=== PATIENT | female | born 1945 | race Caucasian/White ===

== ENCOUNTER → 2016-05-17 12:28 | Outpatient (CLI) | payer MEDICARE, OTHER | END | disposition home or self-care (01) | LOC: D.MRI 12:28 | DX: M54.5 Low back pain (principal); M25.551 Pain in right hip ==

== ENCOUNTER → 2016-07-04 20:09 | Outpatient (CLI) | payer MEDICARE, OTHER | END | disposition home or self-care (01) | LOC: D.LABREF 20:09 | DX: M16.11 Unilateral primary osteoarthritis, right hip (principal); Z11.8 Encounter for screening for other infectious and parasitic diseases ==

== ENCOUNTER 2016-08-14 05:34 | Day surgery (SDC) | payer MEDICARE, OTHER ==
[~2016-08-14] VITALS: Ht 160 cm; Wt 64.4 kg
--- NOTE | ~2016-08-14 | OP ---
PATIENT NAME: VALDO AGUILERA MEDICAL RECORD: [id number] :43 LOCATION:D.OPS ADMISSION DATE: SURGEON: TOMER GILBERT MD DATE OF OPERATION: 08/14/2016 PREOPERATIVE DIAGNOSES: 1. Malignant melanoma of the left anterior thigh. 2. Hypertension. POSTOPERATIVE DIAGNOSES: 1. Malignant melanoma of the left anterior thigh. 2. Hypertension. PROCEDURES: 1. Wide local excision of left anterior thigh melanoma. 2. Left inguinal sentinel lymph node biopsy. SURGEON: Tomer Gilbert MD. REPORT OF PROCEDURE: Preoperatively, the patient underwent lymphoscintigraphy. It showed uptake in the patient's left groin. Left anterior thigh and left groin were all prepped and draped in sterile fashion. Using a Neoprobe, I was able to localize the area overlying the sentinel lymph node. A longitudinal incision was made overlying this and electrocautery was used to dissect through the subcutaneous tissue down to the lymph node. This lymph node was enlarged, but had no change in color. This lymph node was excised and the lymphatics were clipped with small endoclip. The lymph node had a reading of 1300. This was sent off for permanent specimen. We inspected the remainder of the inguinal space and saw no evidence of any high reading lymphatic tissue. Any bleeding that was found was treated with electrocautery and then we irrigated out this wound. We then proceeded to radha out the area on the left anterior thigh just above the knee, 2-cm margins were made in all directions and a longitudinal ellipse were performed using electrocautery, came through the skin and subcutaneous tissue down to the fascia. This entire section was removed all the way down to the fascia and marked appropriately before it was sent off for permanent specimen. We undermined the tissue in all directions and reapproximated the subcutaneous tissue using interrupted 3-0 Vicryls. The skin was then closed with vertical mattress 2-0 nylons. There was good approximation of the tissue. The groin incision was reinspected and again, there was no sign of any bleeding. The subcutaneous tissues and fascia were reapproximated with interrupted 3-0 Vicryl and the skin was closed with running subcutaneous 5-0 Monocryl. A total of 20 mL of 0.25% Marcaine with epinephrine was infused into the surrounding tissues and the wound was dressed appropriately. The total width of the dissection area was 5 cm. COMPLICATIONS: None. CONDITION: Stable. ANESTHESIA: General endotracheal and local. BLOOD LOSS: Minimal. TRANSINT:[id number] Voice Confirmation ID: [id number] DOCUMENT ID: [id number] OPERATIVE REPORT [id number] VALDO AGUILERA CHRISTIAN MD CC: NITA ANTHONY M.D. and DAY KIRKLAND MD [id number] DICTATION DATE: 08/14/16 1357 DERRICK BOAT CAPTAIN: 08/14/16 2356 [facility] 08/14/[address] [address]
[~2016-08-14 05:34] MED LIST: BENADRYL25 MG PO; BIOTIN5 MG PO; BONIVA150 MG PO; COREG 3.1253.125 MG PO; CYCLOBENZAPRINE10 MG PO; FIBER-TABS625 MG PO; MELATONIN 3 MG1 TAB PO; OS-CAL 500+D TA1 TAB PO; PEPCID40 MG PO; PERCOCET 10/3251 TA1 PO; PERCOCET 5-3251 TAB PO; ZOLOFT100 MG PO
[2016-08-14 06:24] LABS: BASOPHILS 0.3 % (0-2); EOSINOPHILS 2.5 % (0-7); HEMATOCRIT 40.6 % (36.0-48.0); HEMOGLOBIN 13.5 g/dL (12-16); IMMATURE GRANULOCYTES 0.5 % (0-5); LYMPHOCYTES 22.8 % (15-50); MCH 30.3 pg (26.0-34.0); MCHC 33.3 g/dL (31.0-37.0); MCV 91.2 fL (80.0-100.0); MEAN PLATELET VOLUME 8.5 fL (7.4-10.4); NEUTROPHILS 64.9 % (40-80); PLATELET COUNT 293 10x3/uL (130-400); RBC 4.45 10x6/uL (4.00-5.40); RDW 12.9 % (11.5-14.5); WBC 7.3 10x3/uL (4.8-10.8)
[2016-08-14 06:28] LABS: ANION GAP 10.2 mmol/L (8-16); CALCIUM 9.2 mg/dL (8.5-10.1); CARBON DIOXIDE 29.8 mmol/L (21.0-32.0); CREATININE - SERUM 0.8 mg/dL (0.6-1.3)
[2016-08-14 06:29] LABS: APTT 28.3 SECONDS (22.8-39.4); INR 0.95 (0.85-1.17); PROTIME 12.5 SECONDS (11.6-15.0)
[2016-08-14] MEDS ORDERED: CIPRO500 MG (06:46)
[2016-08-14] MEDS ORDERED: NUCYNTA (06:48)
--- NOTE | 2016-08-14 07:05 | NUR ---
0705 PT STATES NO CHANGES IN HEALTH HISTORY ASSESSMENT SINCE INTERVIEWED ON 08/13/16. Tricia DHILLON R.N.
[2016-08-14 07:08] VITALS: BP 135/79; Ht 160 cm; Wt 64.4 kg
--- NOTE | 2016-08-14 07:37 | NUR ---
0858 TO MEDICAL IMAGING PER WHEELCHAIR. Tricia DHILLON R.N.
--- NOTE | 2016-08-14 13:18 | NUR ---
FOAM UNDER RIGHT KNEE DUE TO RIGHT HIP PAIN
[2016-08-14] MEDS ORDERED: HYDROCODONE-APA1 TAB PO (13:51)
== END 2016-08-14 15:35 | disposition home or self-care (01) ==
LOC: D.OPS 05:34 → D.PAN 07:30 → D.NM 07:30 → D.OPS 07:30
PROVIDERS: Anesthesiology; Surgery
DX: Z85.820 Personal history of malignant melanoma of skin (principal); I10 Essential (primary) hypertension

== ENCOUNTER 2016-08-23 09:00 | Inpatient (IN) | payer MEDICARE, OTHER ==
[~2016-08-23] VITALS: Ht 160 cm; Wt 62.8 kg
--- NOTE | ~2016-08-23 | OP ---
PATIENT NAME: VALDO AGUILERA MEDICAL RECORD: [id number] :43 LOCATION:D.MS [facility] ADMISSION DATE:08/27/16 SURGEON: MALLORY GARCIA MD DATE OF OPERATION: 08/27/2016 PREOPERATIVE DIAGNOSIS: Degenerative arthritis of the right hip. POSTOPERATIVE DIAGNOSIS: Degenerative arthritis of the right hip. PROCEDURE: Right total hip arthroplasty. ANESTHESIA: General. INTRAOPERATIVE COMPLICATIONS: None. SUMMARY OF PATHOLOGIC FINDINGS: The patient had extensive osteoarthritis of the right hip consistent with the preoperative radiographs. IMPLANTS USED: BrandMe crowdmarketing triathlon Accolade II system with a Tritanium cup size 3 stem, size 52 hemispherical cluster hole shell, 0-degree polyethylene insert, 36-mm alpha code D, Biolox delta ceramic V40 femoral head -2.5 mm. OPERATIVE SUMMARY IN DETAIL: After obtaining the appropriate preoperative orthopedic surgery consent as well as anesthetic consultation, evaluation and clearance, the patient was brought to the operating room and placed on the operating table in supine position. After general laryngeal mask was administered, the patient was placed in a left lateral decubitus position. All pressure points were well padded to include down leg peroneal pad as well as axillary roll. The patient was held firmly to the operating table using the vacuum pack suction system. Right lower extremity and hip were then prepped and draped in a routine sterile fashion. Curvilinear incision was made over the greater trochanter, taken down along the IT band which was split in line with fibers of the IT band to reveal gluteus medius and minimus attachment to the greater trochanter. These were reflected anteriorly and saved for later reapproximation. The hip capsule was split in a T-type fashion and saved also for later reapproximation. Hip was dislocated and femoral neck cut was made using the femoral neck cutting guide. The acetabulum was then visualized. A circumferential labrectomy was then followed by serial and sequential reaming along with removal of osteophytes. The Tritanium cup was then put into place with good capture. The polyethylene liner was also put into place with good capture. Attention was then turned to the proximal femur. Serial and sequential reaming and broaching were done to the proximal femur for a size 3 Accolade II TMZF stem. This was then put into place. Trials were undertaken with the appropriate head and it was felt that the -2.5 was the most appropriate for leg length. This was then reduced, taken through range of motion and found to be stable in all planes. Intraoperative radiographs were taken and showed good position and placement of all components. The wound was copiously irrigated at this multiple points. The hip capsule was reapproximated with #2 Ethibond. The gluteus medius and minimus were reapproximated back to the greater trochanter using #5 Ethibond in a transosseous fashion. IT band was likewise closed with #5 Ethibond followed by #1 Vicryl, 2-0 Vicryl and skin suha. Sterile dressings were applied. The patient was awakened, taken to recovery room in stable condition. All final needle and sponge counts were correct. OPERATIVE REPORT [id number] VALDO AGUILERA TRANSINT:[id number] Voice Confirmation ID: [id number] DOCUMENT ID: [id number] JOSE WILLIS, MALLORY MOYA CC: [id number] DICTATION DATE: 08/27/16 1136 SKI INSTRUCTOR: 08/27/16 1633 ADM IN [facility] [address] [place] [address]
[~2016-08-23 09:00] MED LIST changes: +CIPRO500 MG; +HYDROCODONE-APA1 TAB PO; +NUCYNTA
[2016-08-23 09:01] LABS: BASOPHILS 0.5 % (0-2); HEMATOCRIT 37.5 % (36.0-48.0); HEMOGLOBIN 12.4 g/dL (12-16); IMMATURE GRANULOCYTES 0.5 % (0-5); LYMPHOCYTES 17.7 % (15-50); MCH 30.6 pg (26.0-34.0); MCHC 33.1 g/dL (31.0-37.0); MCV 92.6 fL (80.0-100.0); MEAN PLATELET VOLUME 8.5 fL (7.4-10.4); MONOCYTES 11.1 % (2-11); NEUTROPHILS 68.2 % (40-80); PLATELET COUNT 319 10x3/uL (130-400); RBC 4.05 10x6/uL (4.00-5.40); RDW 12.5 % (11.5-14.5); WBC 6.4 10x3/uL (4.8-10.8)
[2016-08-23 09:02] LABS: APPEARANCE CLEAR (CLEAR); BACTERIA FEW /hpf (NONE SEEN); BILIRUBIN NEGATIVE (NEGATIVE); COLOR YELLOW (YELLOW); GLUCOSE NEGATIVE (NEGATIVE); KETONE NEGATIVE (NEGATIVE); LEUKOCYTE ESTERASE TRACE (NEGATIVE); MUCUS >1+ /lpf (NONE SEEN); NITRITE NEGATIVE (NEGATIVE); PROTEIN NEGATIVE (NEGATIVE); RED CELLS - URINE NONE SEEN /hpf (0-5); SPECIFIC GRAVITY 1.015 (1.005-1.020); UROBILINOGEN NORMAL (NORMAL)
[2016-08-23 09:03] LABS: HYALINE CAST 0-5 /lpf (NONE SEEN)
[2016-08-23 09:10] LABS: APTT 29.4 SECONDS (22.8-39.4); INR 0.99 (0.85-1.17); PROTIME 12.9 SECONDS (11.6-15.0)
[2016-08-23 09:15] LABS: ANION GAP 11.2 mmol/L (8-16); CALCIUM 8.9 mg/dL (8.5-10.1); CREATININE - SERUM 0.9 mg/dL (0.6-1.3); POTASSIUM - SERUM 4.2 mmol/L (3.5-5.1)
--- NOTE | 2016-08-23 12:18 | NUR ---
1200- ABNORMAL UA RESULT CALLED TO DR. GARCIA.
[2016-08-27] VITALS (11 sets, daily range): BP systolic 116–143; BP diastolic 67–93; Ht 160 cm; Wt 62.8 kg
--- NOTE | 2016-08-27 10:49 | NUR ---
RIGHT HIP,LEG WASHED WITH HIBICLENS AND ALCOHOL PRIOR TO CHLORPREP PER DN
--- NOTE | 2016-08-27 12:30 | NUR ---
RECIEVED PT FROM RECOVERY ROOM, REPORT GIVEN BY DON AVELAR. PT RESTING IN BED POST-OP VITALS STARTED AT THIS TIME. ASSESSMENT DONE PER FLOWSHEET. BED IN LOW POSITION AND CALL LIGHT WITHIN REACH. WILL CONTINUE TO MONITOR.
[2016-08-28] VITALS: BP 129/67
--- NOTE | 2016-08-28 02:22 | NUR ---
RESTING WITH EYES CLOSED, NO DISTRESS NOTED, FALL PRECAUTIONS IN PLACE, CL IN REACH
--- NOTE | 2016-08-28 02:47 | NUR ---
REC'D PATIENT LYING IN BED. ALERT AND ORIENTED X4. DENIED PAIN AT THIS TIME. DENIED FUTHER NEEDS AT THIS TIME. 2030 GOT ONTO THE BEDPAN AND SHE DID NOT DO ANYTHING. WAS REPORTED TO ME THAT SHE HAD NOT VOIDED SINCE 1300 08/27/16, PATIENT STATED "I HAVE NOT VOIDED SINCE 0900" I BLADDER SCANNED HER AND GOT 969ML, PATIENT STATED "IM HURTING IN MY STOMACH" I PUT IN THE ORDER TO IN AND OUT CATH HER PER DON SOLITARIO. DID THE IN AND OUT AND GOT 850ML. PATIENT STATED "I FEEL SO MUCH BETTER NOW". DID THE IN AND OUT AROUND 2230. AT 0245 PATIENT GOT ONTO THE BEDPAN AND WAS ABLE TO VOID ON HER OWN. WILL CONT TO MONITOR THROUGHOUT THE NIGHT. WILL ADMIN PM/AM MEDS PRESCRIBED. IS AT BEDSIDE. INSTRUCTED TO CALLL IF NEEDED ANYTHING. BED LOW, LOCKED, CALL LIGHT IN REACH, ALARM ON.
[2016-08-28 04:00] VITALS: BP 134/72
[2016-08-28 06:44] LABS: HEMATOCRIT 31.1 % (36.0-48.0); HEMOGLOBIN 10.4 g/dL (12-16); MCH 30.7 pg (26.0-34.0); MCHC 33.4 g/dL (31.0-37.0); MCV 91.7 fL (80.0-100.0); MEAN PLATELET VOLUME 8.6 fL (7.4-10.4); RBC 3.39 10x6/uL (4.00-5.40); RDW 12.7 % (11.5-14.5); WBC 9.5 10x3/uL (4.8-10.8)
--- NOTE | 2016-08-28 07:30 | NUR ---
RECIEVED PT DURING WALKING ROUNDS. PT RESTING IN BED WITH NO COMPLAINTS OF PAIN OR DISCOMFORT AT THIS TIME. ASSESSMENT DONE PER FLOWSHEET. BED IN LOW POSITION AND CALL LIGHT WITHIN REACH. WILL CONTINUE TO MONITOR.
[2016-08-28 08:12] VITALS: BP 125/62
--- NOTE | 2016-08-28 09:35 | NUR ---
PT UP TO CHAIR WITH PHYSICAL THERAPY AT THIS TIME, PT TOLERATED WELL. CALL LIGHT WITHIN REACH. WILL CONTINUE TO MONITOR.
[2016-08-28 12:27] VITALS: BP 133/63
--- NOTE | 2016-08-28 15:00 | NUR ---
called to room per spouse. pt cheeks are flushed. no complaints of pain or sob. temp 99.4. was using incentive spirometry when nurse walked into room. encouraged pt to continue using it every hour x several times hour. stated she would. call light in place
--- NOTE | 2016-08-28 15:21 | NUR ---
Patient Name: VALDO AGUILERA Admission Status: Urgent Accout number: [id number] Admission Date: 08-27-2016 : 1945 Admission Diagnosis: Attending: ROLA Current LOS: 1 Anticipated DC Date: 08-29-2016 Planned Disposition: Outpatient PT\OT Primary Insurance: MEDICARE A & B Discharge Planning Comments: CM SPOKE WITH PATIENT AND HER SPOUSE (PAIGE) REGARDING D/C NEEDS AND PLANS. PATIENT STATED HER SPOUSE WILL DRIVE HER HOME AT DISCHARGE. THERE ARE NO STEPS TO ENTER HOME AND 4 STEPS INSIDE WITH RAILS. PATIENT IS INDEPENDENT WITH HER CARE AND HAS A WALKER, CANE, AND BS COMMODE AT HOME. PATIENTS PCP IS DR. ANTHONY AND [facility] [address] IS HER PHARMACY. PATIENT WILL BE HAVING OP PT AT [place] AND HER APPOINTMENT IS SATURDAY AT 11:00AM. CM WILL CONTINUE TO FOLLOW PATIENT WITH D/C NEEDS AND PLANS. PCP DR. RAJ RING [address] [phone] PAIGE (SPOUSE) [phone] Dental Associate: Eunice Gould Is the patient Alert and Oriented? Yes 0 * How many steps to enter\exit or inside your home? 4 W/RAILS 0 * PCP DR. ANTHONY 0 * Pharmacy [facility] [address] 0 * Preadmission Environment Home with Family 0 * ADLs Independent 0 * Equipment Bedside Commode Cane Walker 0 * List name and contact numbers for known caregivers / representatives who currently or will assist patient after discharge: PAIGE AGUILERA (SPOUSE) [phone] * Community resources currently utilized None 0 * Additional services required to return to the preadmission environment? Yes 0 * Can the patient safely return to the preadmission environment? Yes 0 * Has this patient been hospitalized within the prior 30 days at any hospital? No 0 Grand Total: 0
[2016-08-28 16:26] VITALS: BP 139/71
[2016-08-28 20:00] VITALS: BP 125/68
--- NOTE | 2016-08-28 20:20 | NUR ---
ASSISTED PATIENT FROM THE BED TO THE BSC AND BACK TO BED. ADMINISTERED MEDS PER ORDERS. PATIENT DENIES OTHER NEEDS AT THIS TIME. BED IN THE LOWEST POSITION AND CALL LIGHT WITHIN REACH. ENCOURAGED THE PATIENT TO CALL IF SHE HAS FURTHER NEEDS.
[2016-08-29] VITALS: BP 125/67
[2016-08-29 04:00] VITALS: BP 125/71
[2016-08-29 06:36] LABS: HEMATOCRIT 30.9 % (36.0-48.0); HEMOGLOBIN 10.4 g/dL (12-16); MCH 30.7 pg (26.0-34.0); MCHC 33.7 g/dL (31.0-37.0); MCV 91.2 fL (80.0-100.0); MEAN PLATELET VOLUME 8.3 fL (7.4-10.4); RBC 3.39 10x6/uL (4.00-5.40); WBC 10.7 10x3/uL (4.8-10.8)
--- NOTE | 2016-08-29 07:25 | NUR ---
REPORT RECEIVED PER COMMERCIAL LOAN ANALYST NURSE. CALL LIGHT IN REACH.
[2016-08-29] MEDS ORDERED: ELIQUIS2.5 MG PO (07:38)
[2016-08-29 08:00] VITALS: BP 113/65
[2016-08-29] MEDS ORDERED: HYDROCODONE-APA1 TAB PO (08:59)
--- NOTE | 2016-08-29 09:19 | NUR ---
ASSESSMENT COMPLETED. AM MEDS ADMINISTERED. STATES PAIN OF 5 BUT REFUSES PAIN MED AT THIS TIME. CALL LIGHT IN REACH. WILL CONTINUE WITH PLAN OF CARE.
--- NOTE | 2016-08-29 09:20 | NUR ---
CM REASSESSMENT NOTE: PATIENT IS DISCHARGING HOME TODAY- (PAIGE) DRIVING. PATIENTS APPT. FOR OP PT IS SATURDAY AT 11:00 HERE AT [facility]. PATIENT HAD ALL EQUIPMENT NEEDED AT HOME.
--- NOTE | 2016-08-29 10:53 | NUR ---
HAS COMPLETED PHYSICAL THERAPY FOR THE DAY. 4X4s REMOVED BUT ANNA SARGENTG LEFT ON. IV TO LEFT AC DC'D WITH TIP INTACT.
--- NOTE | 2016-08-29 11:14 | NUR ---
PT AOX4 RESP EVEN AND NONLABORED PT DENIES NEEDS AT THIS TIME PT HERE FOR RIGHT HIP REPAIR FOR THIS VISIT
--- NOTE | 2016-08-29 11:28 | NUR ---
DC INSTRUCTIONS EXPLAINED TO PATIENT AND . BOTH VERBALIZED UNDERSTANDING. RXs FOR NORCO AND ELIQUIS HANDED TO . DC'D TO VEHICLE VIA WC WITH .
== END 2016-08-29 11:29 | disposition home or self-care (01) | DRG 470 ==
LOC: D.SDCHOLD 09:00 → D.MS 08-27 07:15 → D.SDCHOLD 08-27 08:45 → D.MS 08-27 11:41
PROVIDERS: ADMIT Orthopaedic Surgery
PROC: 0SR904Z Replacement of Right Hip Joint with Ceramic on Polyethylene Synthetic Substitute, Open Approach (ICD-10-PCS; principal; 2016-08-27 09:45)
DX: M16.11 Unilateral primary osteoarthritis, right hip (principal); D62 Acute posthemorrhagic anemia; M25.751 Osteophyte, right hip; I10 Essential (primary) hypertension

== ENCOUNTER → 2017-08-01 12:41 | Outpatient (CLI) | payer MEDICARE, OTHER ==
[2016-08-27 13:21] VITALS: BMI 24.5
[~2017-08-01 12:41] MED LIST changes: +ELIQUIS2.5 MG PO
== END | disposition home or self-care (01) ==
LOC: D.RAD 12:40
DX: C43.9 Malignant melanoma of skin, unspecified (principal)

== ENCOUNTER → 2017-10-23 08:00 | Outpatient (CLI) | payer MEDICARE, OTHER ==
[2016-08-27 13:21] VITALS: BMI 24.5
== END | disposition home or self-care (01) ==
LOC: D.MAMMO 08:00
DX: Z12.31 Encounter for screening mammogram for malignant neoplasm of breast (principal)

== ENCOUNTER 2018-03-26 15:58 | Inpatient (IN) | payer MEDICARE, BC ==
[~2018-03-26] VITALS: Ht 160 cm; Wt 63.5 kg
--- NOTE | ~2018-03-26 | HEMODYNAMI ---
PATIENT:VALDO AGUILERA MEDICAL RECORD: [id number] : 43 LOCATION:D.MS [facility] ADMISSION DATE: 03/26/18 Generatedon:03/27/201815:10 Patient name: VALDO AGUILERA Patient #: [id number] SSN: D OB: 1945 Date of study: 03/27/2018 Page: Of Hemodynamic Procedure Report Patient Data Patient Demographics Procedure consent was obtained First Name: VALDO Gender: Female Last Name: WILLY : 1945 Middle Initial: C Age: 72 year(s) Patient #: [id number] Race: Unknown Additional ID: [id number] Contact details Address: [address] [place] [address] State: [place] City: [place] Zip code: [address] Admission Admission Data Admission Date: 03/26/2018 Admission Time: 17:59 Room #: D.2207 Procedure Procedure Types Cath Procedure Peripheral Cath Diagnostic Procedure Manager Programming Peripheral Procedures IVC Filter Procedure Description Procedure Date Procedure Date: 03/27/2018 Procedure Start Time: 14:25 Procedure Staff Name Function John Edmonds RT Monitor Alfredito Cruz MD Performing Physician Sarah Lujan Scrub Krystal Hwang RN Nurse Procedure Data Cath Procedure Fluoroscopy Diagnostic fluoroscopy Total fluoroscopy Time: 9.3 time: 9.3 min min Diagnostic fluoroscopy Total fluoroscopy dose: 649 dose: 649 mGy mGy Contrast Material Contrast Material Type Amount (ml) Isovue 300 65 Diagnostic catheters Device Type Used For End Catheter Placement Merit F Pigtail VESSEL SIZING 5Fr 65CM catheter ([id number]) Procedure Medications Medication Administration Route Dosage Lidocaine 1% added to field 20 Heparin Flush Bag added to field 3 bags (1000units/500ml NS) Versed I.V. 1 mg Fentanyl I.V. 50 mcg Versed I.V. 1 mg Fentanyl I.V. 50 mcg Hemodynamics Rest Heart Rate: 97 (bpm) Snapshots Pre Cath Intra NCS Post Cath Vital Signs Time Heart Resp SPO2 etCO2 NIBP (mmHg) Rhythm Pain Sedation Rate (ipm) (%) (mmHg) Status Level (bpm) 13:59:36 96 9 100 18.7 141/73(118) NSR 0 (11) 10(A) , No pain 14:03:56 96 23 100 23.2 137/76(108) NSR 0 (11) 10(A) , No pain 14:08:16 97 27 100 15.7 138/76(88) NSR 0 (11) 10(A) , No pain 14:12:34 96 25 100 22.5 135/74(106) NSR 0 (11) 9(A) , No pain 14:16:53 95 26 100 22.5 137/77(117) NSR 0 (11) 9(A) , No pain 14:21:11 97 25 100 22.5 132/74(107) NSR 0 (11) 9(A) , No pain 14:25:27 98 25 100 23.3 140/75(116) NSR 0 (11) 9(A) , No pain 14:29:43 101 20 100 20.3 128/74(98) NSR 0 (11) 9(A) , No pain 14:33:53 97 22 100 26.3 130/73(88) NSR 0 (11) 9(A) , No pain 14:38:11 102 12 99 21 108/72(83) NSR 0 (11) 9(A) , No pain 14:42:17 102 12 98 1.5 121/81(105) NSR 0 (11) 9(A) , No pain 14:46:30 101 15 99 31.5 139/74(118) NSR 0 (11) 9(A) , No pain 14:50:48 105 16 99 30 131/77(98) NSR 0 (11) 9(A) , No pain 14:55:07 98 17 100 30.8 131/76(108) NSR 0 (11) 9(A) , No pain 14:59:25 95 16 100 31.5 133/76(110) NSR 0 (11) 9(A) , No pain 15:03:41 95 17 100 29.3 146/78(108) NSR 0 (11) 9(A) , No pain 15:08:03 97 26 100 21.8 141/78(109) NSR 0 (11) 9(A) , No pain Medications Time Medication Route Dose Verified Delivered Reason Notes Effec tiveness by by 14:09:12 Lidocaine 1% added 20ml Alfredito Glaser used for to vial Nancy Cruz MD procedure field 14:09:29 Heparin Flush added 3 Alfredito Glaser used for Bag to bags Nancy Cruz MD procedure (1000units/500ml field NS) 14:27:45 Versed I.V. 1 mg Alfredito Rice for Jaiden Cruz RN sedation 14:27:56 Fentanyl I.V. 50 Alfredito Rice for mcg Jaiden Cruz RN sedation 14:35:24 Versed I.V. 1 mg Alfredito Rice for Jaiden Cruz RN sedation 14:35:36 Fentanyl I.V. 50 Alfredito Rice for mcg Jaiden Cruz RN sedation Procedure Log Time Note 13:48:22 John Edmonds RT (R) (CV) sent for patient. Start room use. 13:48:27 Time tracking: Regular hours (M-F 7:00 - 5:00) 13:48:33 Plan of Care:Hemodynamics will remain stable., Cardiac rhythm will remain stable., Comfort level will be maintained., Respiratory function will remain adequate., Patient/ family verbilizes understanding of procedure., Procedure tolerated without complication., Recovers from procedure without complications.. 13:48:37 Use device set IR Diagnostic 13:48:39 ACIST Syringe (05816) opened to sterile field. 13:48:39 ACIST Hand Control (76300) opened to sterile field. 13:48:39 ACIST Manifold (35821) opened to sterile field. 13:48:40 Bag Decanter (2002S) opened to sterile field. 13:48:40 Sterile Angiographic Pack opened to sterile field. 13:48:41 Tegaderm 4 x 4 (1626W) opened to sterile field. 13:48:48 Patient received from Med/Surg to IR Alert and oriented. Tansferred to table in Supine position. 13:48:49 Correct patient and procedure confirmed by team. 13:48:51 Signed procedure consent form obtained from patient. 13:48:52 ECG and BP/O2 sat monitors applied to patient. 13:48:53 Full Disclosure recording started 13:48:56 - 13:48:59 H&P Date Dictated: 03/27/2018 Within 30 days and on chart.. 13:49:00 Pre-procedure instructions explained to patient. 13:49:01 Pre-op teaching completed and patient verbalized understanding. 13:49:04 Family in waiting room. 13:49:06 Patient NPO since Midnight. 13:49:18 Is the patient allergic to Iodine/contrast media? No. 13:50:08 Is patient on blood thinner?No 13:50:10 Patient diabetic? No. 13:50:11 - 13:50:11 ----Pre-sedation anethsthesia assessment.---- 13:50:14 Previous problem with sedation/anesthesia? No ? 13:50:15 Snore? Yes 13:50:16 Sleep apnea? No 13:50:18 Deviated septum? No 13:50:22 Opens mouth fully? Yes 13:50:25 Sticks out tongue? Yes 13:50:30 Airway obstruction? No ? 13:50:33 Dentures? No ? 13:50:40 Patient pain scale 0/10 no pain. 13:50:46 IV patent on arrival in left forearm with 0.9% NaCl at [facility]. 13:50:48 Alarms reviewed by Norm Ruiz 13:50:49 Sharps counted by scrub and verified by RMegaNMega 13:50:55 Right neck area was prepped with chlora-prep and draped in sterile fashion 13:58:19 Vital chart was started 14:09:12 Lidocaine 1% 20ml vial added to field was administered by Alfredito Curz MD; used for procedure; 14:09:29 Heparin Flush Bag (1000units/500ml NS) 3 bags added to field was administered by Alfredito Cruz MD; used for procedure; 14:18:36 Baseline sample Acquired. 14:23:14 Physician arrived 14::15 --------ALL STOP TIME OUT------ 14::15 Final Timeout: patient, procedure, and site verified with staff and physician. All members of the team are in agreement. 14:23:21 Right neck site verified by team. 14:23:26 Sedation plan: IV Moderate Sedation Medication:Versed, Fentanyl 14:25:15 Procedure started. 14:25:20 Local anesthetic to right IJ vein with Lidocaine 1% by Alfredito Cruz MD.INITIAL ACCESS ONLY 14:25:23 SHEATH 5FR [place] (HBZ905) opened to sterile field. 14:25:23 TUBING Contrast Injection High Pressure (ICG622H) opened to sterile field. 14:25:24 TUBING Contrast Injection High Pressure (YMM499K) opened to sterile field. 14:25:24 Micropuncture VSI 4FR kit opened to sterile field. 14:25:24 DOC .035 wire (F39559) opened to sterile field. 14:25:25 FILTER Jeannette Jugular Vena Cava (SQ439F) opened to sterile field. 14:27:45 Versed 1 mg I.V. was administered by Krystal Hwang RN; for sedation; 14:27:56 Fentanyl 50 mcg I.V. was administered by Krystal Hwang RN; for sedation ; 14:32:17 A [facility] Pigtail VESSEL SIZING 5Fr 65CM catheter ([id number]) was advanced over the wire and used for . 14:33:20 GLIDE CATHETER 5FR ANGLED 65cm (CG507) opened to sterile field. 14:35:24 Versed 1 mg I.V. was administered by Krystal Hwang RN; for sedation; 14:35:36 Fentanyl 50 mcg I.V. was administered by Krystal Hwang RN; for sedation ; 14:43:09 Will 180 wire (E32210) opened to sterile field. 14:44:57 GLIDE WIRE ANGLE 180cm (OP6960) opened to sterile field. 14:47:42 GLIDE CATHETER 5FR COBRA 65cm (CG502) opened to sterile field. 15:01:30 Procedure ended.(Physican Out) 15:02:05 Fluoroscopy time 09.30 minutes. 15:02:10 Flurop Dose total: 649 15:02:10 Fluoroscopy dose: 649 mGy 15:02:12 Sharps counted by scrub and verified by R.N. 15:02:14 Insertion/operative site no bleeding no hematoma. 15:02:19 Post-op/insertion site Right Jugular vein dressed using a 4 x 4 and Tegaderm. 15:02:26 Post right IJ vein:stable 15:02:31 Post procedure instruction explained to patient.Patient verbalizes understanding. 15:02:33 Procedure and supply charges have been captured, reviewed, submitted an d are correct. 15:09:39 Contrast amount:Isovue 300 65ml. 15:09:43 Report given to Med/Surg. 15:09:46 Patient transfered to Med/Surg with Bed. 15:10:28 Vital chart was stopped Device Usage Item Name Manufacture Quantity Catalog Hospital Part Current Minima l Lot# / Number Charge Number Stock Stock Serial# Code ACIST Syringe Acist 1 36358 871555 052278 812025 20 (83923) Medical Systems Inc ACIST Hand Acist 1 76555 097741 672528 235164 5 Control Medical (81925) Systems Inc ACIST Acist 1 45240 527455 804321 193709 5 Manifold Medical (58289) Systems Inc Bag Decanter Microtek 1 2001S 033242 95406 600455 5 (2001S) Medical Inc. Sterile Cardinal 1 [id number] 657213 532036 5 Angiographic Health Pack Tegaderm 4 x 3M 1 1626W 304909 696731 700362 5 4 (1626W) SHEATH 5FR Terumo 1 TYF965 600117 535442 480073 5 [place] (RMW192) TUBING Merit 2 OLY192Q 720761 513003 962565 5 [id number] Contrast Medical Injection High Pressure (EVH724D) Micropuncture VSI VASCULAR 1 7266V 521711 884098 5 VSI 4FR kit SOLUTIONS DOC .035 wire Cook Medical 1 H70223 783060 929293 5 (X51389) FILTER Jeannette Bard 1 OC816H 929905 973323 364426 5 [id number] Jugular Vena Cava (QI129I) Merit F [facility] 1 7602-20M65 535626 856536 5 Pigtail Medical VESSEL SIZING 5Fr 65CM catheter ([id number]) GLIDE Terumo 1 CG507 800083 144428 5 CATHETER 5FR ANGLED 65cm (CG507) Will 180 [facility] 1 O73215 376170 097483 4669363 5 [id number] wire (K61910) GLIDE WIRE Terumo 1 DF7985 862060 745041 560668 5 ANGLE 180cm (CV0300) GLIDE Terumo 1 CG502 397570 981600 5 CATHETER 5FR COBRA 65cm (CG502) Signature Audit [place] Stage Time Signature Unsigned Intra-Procedure 03/27/2018 John 3:10:25 PM Shuffield RT (R) (CV) Signatures Monitor : John Signature : Elpidioield RT Date : Time : [facility] [address] [facility] [address]
[2018-03-26 16:33] LABS: BASOPHILS 0.1 % (0-2); EOSINOPHILS 0.1 % (0-7); HEMATOCRIT 37.2 % (36.0-48.0); HEMOGLOBIN 12.4 g/dL (12-16); IMMATURE GRANULOCYTES 0.6 % (0-5); LYMPHOCYTES 7.3 % (15-50); MCH 30.2 pg (26.0-34.0); MCHC 33.3 g/dL (31.0-37.0); MCV 90.5 fL (80.0-100.0); MEAN PLATELET VOLUME 9.3 fL (7.4-10.4); MONOCYTES 7.3 % (2-11); NEUTROPHILS 84.6 % (40-80); RBC 4.11 10x6/uL (4.00-5.40); RDW 14.1 % (11.5-14.5)
[2018-03-26 16:34] LABS: PLATELET COUNT 127 10x3/uL (130-400)
[2018-03-26 16:46] LABS: ANION GAP 18.3 mmol/L (8-16); BILIRUBIN - TOTAL 0.28 mg/dL (0.2-1.3); CALCIUM 7.4 mg/dL (8.5-10.1); CARBON DIOXIDE 22.3 mmol/L (21.0-32.0); POTASSIUM - SERUM 3.6 mmol/L (3.5-5.1); PROTEIN - SERUM 6.4 g/dL (6.4-8.2)
--- NOTE | 2018-03-26 22:00 | NUR ---
RECIEVED PT FROM ER ACCOMPANIED BY HOSPITAL STAFF VIA BED. FAMILY MEMBER AT BEDSIDE. ALERT ANO ORIENTED X4. RESPIRATIONS EVEN AND UNLABORED. VS STABLE AND AFREBRILE. NO VISUAL CUES OF DISTRESS NOTED. INITIATED AND EXPLAINED FALL PRECAUTIONS. STATED SHE UNDERSTOOD. BED LOW, SIDE RAILS UP X2. CALL LIGHT IN REACH. WILL CONTINUE TO MONITOR.
[2018-03-27] VITALS: BP 103/62
[2018-03-27 02:21] VITALS: BP 107/59; BMI 24.8
[2018-03-27 04:00] VITALS: BP 120/70
--- NOTE | 2018-03-27 04:59 | NUR ---
PT IN BED IN LOW FOWLERS POSITION. ALERT AND ORIENTED X4. RESPIRATIONS EVEN AND UNLABORED. VS STABLE AND AFEBRILE. NO VISUAL CUES OF DISTRESS NOTED. DENIES ANY OTHER NEEDS AT THIS TIME. BED LOW, SIDE RAILS UP X2. CALL LIGHT IN REACH. WILL CONTINUE TO MONITOR.
[2018-03-27 06:10] LABS: BASOPHILS 0.2 % (0-2); EOSINOPHILS 0.2 % (0-7); HEMATOCRIT 30.1 % (36.0-48.0); HEMOGLOBIN 10.3 g/dL (12-16); IMMATURE GRANULOCYTES 0.6 % (0-5); LYMPHOCYTES 14.1 % (15-50); MCHC 34.2 g/dL (31.0-37.0); MONOCYTES 11.5 % (2-11); NEUTROPHILS 73.4 % (40-80); PLATELET COUNT 133 10x3/uL (130-400); RBC 3.43 10x6/uL (4.00-5.40)
[2018-03-27 06:22] LABS: MCV 87.8 fL (80.0-100.0); WBC 6.5 10x3/uL (4.8-10.8)
[2018-03-27 06:23] LABS: RDW 14.3 % (11.5-14.5)
[2018-03-27 07:18] LABS: APTT 36.5 SECONDS (22.8-39.4); INR 1.2 (0.85-1.17); PROTIME 14.7 SECONDS (11.6-15.0)
[2018-03-27 09:23] LABS: ALBUMIN 2.7 g/dL (3.4-5.0); ALKALINE PHOSPHATASE 46 U/L (46-116); ALT (SGPT) 15 U/L (10-68); BILIRUBIN - TOTAL 0.13 mg/dL (0.2-1.3); CALCIUM 7.1 mg/dL (8.5-10.1); CARBON DIOXIDE 24.4 mmol/L (21.0-32.0); CHLORIDE - SERUM 102 mmol/L (98-107); POTASSIUM - SERUM 3.6 mmol/L (3.5-5.1); PROTEIN - SERUM 6.1 g/dL (6.4-8.2); SODIUM 136 mmol/L (136-145); UREA NITROGEN 16 mg/dL (7-18); eGFR NON AFRICAN AMERICAN 87 mL/min (90-120)
[2018-03-27 09:25] LABS: CALC OSMOLALITY 274 mosm/kg (275-300); CREATININE - SERUM 0.7 mg/dL (0.6-1.3); GLUCOSE 134 mg/dL (74-106)
[2018-03-27 10:33] VITALS: BMI 24.8
[2018-03-27 10:57] LABS: HEMATOCRIT 32.3 % (36.0-48.0); HEMOGLOBIN 10.9 g/dL (12-16)
[2018-03-27 12:42] VITALS: BP 116/72
[2018-03-27 12:49] LABS: APPEARANCE SL CLDY (CLEAR); BILIRUBIN NEGATIVE (NEGATIVE); COLOR YELLOW (YELLOW); GLUCOSE NEGATIVE (NEGATIVE); KETONE SMALL mg/dL (NEGATIVE); NITRITE POSITIVE (NEGATIVE); PROTEIN TRACE mg/dL (NEGATIVE); SPECIFIC GRAVITY 1.025 (1.005-1.020); UROBILINOGEN NORMAL (NORMAL)
[2018-03-27 12:50] LABS: BACTERIA MANY /hpf (NONE SEEN); EPITHELIAL CELLS 0-5 /hpf (0-5); MUCUS <1+ /lpf (NONE SEEN); RED CELLS - URINE OCC /hpf (0-5)
[2018-03-27 16:00] VITALS: BP 130/72
[2018-03-27 17:48] VITALS: Ht 160 cm; Wt 63.5 kg
[2018-03-27 18:29] LABS: HEMATOCRIT 28.9 % (36.0-48.0); HEMOGLOBIN 9.7 g/dL (12-16)
--- NOTE | 2018-03-27 19:45 | NUR ---
LYING IN BED. ALERT AND ORIENTED X4. AT BEDSIDE. RESP EVEN AND NONLABORED. BBS CTA. ABD DISTENDED AND SOFT. BS ARE HYPOACTIVE X4 QUADS. DENIES PAIN. FELDMAN CATH PATENT AND DRAINING DARK YELLOW URINE. SCDS ON BILAT. 1+ EDEMA NOTED TO LT FOOT. NS @ 100 ML/HR INFUSING IN LT AC WITHOUT DIFF. SR ELEVATED X2. CL IN REACH.
[2018-03-27 19:52] VITALS: BP 145/52
[2018-03-28] VITALS (13 sets, daily range): BP systolic 107–143; BP diastolic 68–81
[2018-03-28 05:19] LABS: BASOPHILS 0.1 % (0-2); EOSINOPHILS 0.2 % (0-7); HEMATOCRIT 26.4 % (36.0-48.0); HEMOGLOBIN 8.8 g/dL (12-16); IMMATURE GRANULOCYTES 0.3 % (0-5); MCH 29.6 pg (26.0-34.0); MCHC 33.3 g/dL (31.0-37.0); MCV 88.9 fL (80.0-100.0); MONOCYTES 11.5 % (2-11); NEUTROPHILS 76.9 % (40-80); PLATELET COUNT 129 10x3/uL (130-400); RBC 2.97 10x6/uL (4.00-5.40); RDW 14.3 % (11.5-14.5)
[2018-03-28 05:23] LABS: WBC 8.6 10x3/uL (4.8-10.8)
[2018-03-28 05:35] LABS: CALC OSMOLALITY 274 mosm/kg (275-300); CALCIUM 7.2 mg/dL (8.5-10.1); CARBON DIOXIDE 24.4 mmol/L (21.0-32.0); CHLORIDE - SERUM 102 mmol/L (98-107); CREATININE - SERUM 0.7 mg/dL (0.6-1.3); GLUCOSE 104 mg/dL (74-106); POTASSIUM - SERUM 3.5 mmol/L (3.5-5.1); SODIUM 137 mmol/L (136-145); UREA NITROGEN 14 mg/dL (7-18); eGFR NON AFRICAN AMERICAN 87 mL/min (90-120)
--- NOTE | 2018-03-28 09:05 | NUR ---
PT RESTING QUIETLY IN BED WITH SPOUSE AT BEDSIDE. RESP EVEN AND UNLABORED. ABDOMINAL TENDERNESS NOTED AT THIS TIME, RATING PAIN 0/5. IV TO LEFT AC WITH NS @ 100 ML/HR INFUSING VIA PUMP. SITE WITHOUT REDNESS OR EDEMA. SCD'S TO RIGHT LOWER EXTREMITY PER MD ORDER NOT TO PLACE ON LEFT LOWER EXTREMITY. DENIES FURTHER NEEDS AT THIS TIME. CL WITHIN REACH. ENCOURAGED TO CALL WITH NEEDS. CONTINUE POC
[2018-03-28 11:23] LABS: CEA 0.7 ng/mL (0.0-4.7)
--- NOTE | 2018-03-28 13:07 | NUR ---
1 UNIT PRBC INITIATED PER MD ORDERS. NO ACUTE DISTRESS NOTED AT THIS TIME. WILL CONTINUE TO MONITOR.
--- NOTE | 2018-03-28 16:00 | NUR ---
1 UNIT PRBC COMPLETE. PT ENRIQUETA WELL. NO ACUTE DISTRESS NOTED. DENIES FURTHER NEEDS AT THIS TIME. CL WITHIN REACH. WILL CONTINUE TO MONITOR.
[2018-03-29 04:00] VITALS: BP 131/77
[2018-03-29 06:28] LABS: BASOPHILS 0.1 % (0-2); EOSINOPHILS 0.4 % (0-7); HEMATOCRIT 26.9 % (36.0-48.0); HEMOGLOBIN 9.1 g/dL (12-16); IMMATURE GRANULOCYTES 0.4 % (0-5); LYMPHOCYTES 11.6 % (15-50); MCH 29.4 pg (26.0-34.0); MCHC 33.8 g/dL (31.0-37.0); MEAN PLATELET VOLUME 8.9 fL (7.4-10.4); MONOCYTES 12.4 % (2-11); NEUTROPHILS 75.1 % (40-80); PLATELET COUNT 135 10x3/uL (130-400); RDW 14.3 % (11.5-14.5); WBC 7.9 10x3/uL (4.8-10.8)
[2018-03-29 06:31] LABS: MCV 86.8 fL (80.0-100.0)
--- NOTE | 2018-03-29 06:36 | NUR ---
PT IN BED RESTING QUIETLY WITH EYES CLOSED. VITAL SIGNS STABLE AND AFEBRILE. NO VISUAL CUES OF DISTRESS NOTED. WILL CONTINUE TO MONITOR.
[2018-03-29 06:41] LABS: CALC OSMOLALITY 272 mosm/kg (275-300); CHLORIDE - SERUM 104 mmol/L (98-107); CREATININE - SERUM 0.6 mg/dL (0.6-1.3); GLUCOSE 97 mg/dL (74-106); POTASSIUM - SERUM 3.4 mmol/L (3.5-5.1); SODIUM 137 mmol/L (136-145); UREA NITROGEN 11 mg/dL (7-18); eGFR NON AFRICAN AMERICAN > 90 mL/min (90-120)
[2018-03-29 06:46] LABS: CALCIUM 6.6 mg/dL (8.5-10.1)
--- NOTE | 2018-03-29 08:00 | NUR ---
LYING IN BED,WITHOUT DISTRESS.CALL LIGHT IN REACH
[2018-03-29 08:30] VITALS: BP 140/71
--- NOTE | 2018-03-29 11:13 | NUR ---
PT RESTING IN BED. NO SIGNS OF DISTRESS. IV TO RIGHT AC PATENT NO REDNESS OR TENDERNESS. LEFT LEG SWOLLEN DUE TO DVT. HAS BANDAGE TO RIGHT SIDE OF NECK DUE IVCF PLACEMENT. HAS FELDMAN NO KINKS PATENT. DENIES ANY NEED AT THIS TIME. CALL LIGHT IN REACH. BED LOW POSITION. FAMILY AT BEDSIDE.
[2018-03-29 12:30] VITALS: BP 125/70
[2018-03-29 20:00] VITALS: BP 130/70
[2018-03-30] VITALS: BP 121/66
[2018-03-30 04:00] VITALS: BP 138/75
[2018-03-30 06:04] LABS: CALC OSMOLALITY 270 mosm/kg (275-300); CARBON DIOXIDE 25.9 mmol/L (21.0-32.0); CHLORIDE - SERUM 102 mmol/L (98-107); CREATININE - SERUM 0.6 mg/dL (0.6-1.3); GLUCOSE 98 mg/dL (74-106); POTASSIUM - SERUM 3.1 mmol/L (3.5-5.1); SODIUM 136 mmol/L (136-145); UREA NITROGEN 9 mg/dL (7-18); eGFR NON AFRICAN AMERICAN > 90 mL/min (90-120)
[2018-03-30 06:21] LABS: BASOPHILS 0.1 % (0-2); EOSINOPHILS 0.7 % (0-7); HEMATOCRIT 26.2 % (36.0-48.0); HEMOGLOBIN 8.8 g/dL (12-16); IMMATURE GRANULOCYTES 0.6 % (0-5); MCH 29.6 pg (26.0-34.0); MCHC 33.6 g/dL (31.0-37.0); MCV 88.2 fL (80.0-100.0); MEAN PLATELET VOLUME 8.6 fL (7.4-10.4); MONOCYTES 10.6 % (2-11); RBC 2.97 10x6/uL (4.00-5.40); RDW 14.5 % (11.5-14.5); WBC 8.4 10x3/uL (4.8-10.8)
[2018-03-30 06:22] LABS: PLATELET COUNT 184 10x3/uL (130-400)
[2018-03-30 06:23] LABS: CALCIUM 6.7 mg/dL (8.5-10.1)
--- NOTE | 2018-03-30 06:54 | NUR ---
CONCUR WITH BUSINESS BANKING MANAGER ASSESSMENT.
--- NOTE | 2018-03-30 07:35 | NUR ---
RESTING,WITHOUT SIGNS OF DISTRESS
--- NOTE | 2018-03-30 07:41 | NUR ---
PT RESTING IN BED. NO SIGNS OF DISTRESS. IV TO RIGHT AC PATENT NO REDNESS OR TENDERNESS. LEFT LEG IS SWOLLEN. HAS FELDMAN NO KINKS PATENT. HAS BANDAGE TO RIGHT SIDE OF NECK FROM FILTER PLACEMENT. DENIES ANY OTHER NEED AT THIS TIME. CALL LIGHT IN REACH. BED LOW POSITION. FAMILY AT BEDSIDE.
[2018-03-30 08:56] VITALS: BP 147/78
[2018-03-30 17:52] VITALS: BP 122/59
--- NOTE | 2018-03-30 19:57 | NUR ---
RECEIVED REPORT, ASSUMED CARE, A&O, DENIES NEEDS, AT BEDSIDE, CALL LIGHT IN REACH, BED LOWEST POSITION, FELDMAN TO GRAVITY, WILL CONTINUE TO MONITOR
[2018-03-30 20:46] VITALS: BP 139/79
[2018-03-31] VITALS: BP 140/74; BP 151/78
--- NOTE | 2018-03-31 03:32 | NUR ---
PT LYING IN BED RESTING QUIETLY, EYES CLOSED. RESP EVEN, UNLABORED. NO DISTRESS NOTED. CONTINUE SHRIMP CLEANER'S PLAN OF CARE. FAMILY AT BEDSIDE.
[2018-03-31 04:57] LABS: BASOPHILS 0.2 % (0-2); EOSINOPHILS 0.8 % (0-7); HEMATOCRIT 27.4 % (36.0-48.0); HEMOGLOBIN 9.2 g/dL (12-16); IMMATURE GRANULOCYTES 1.7 % (0-5); LYMPHOCYTES 11.9 % (15-50); MCH 29.5 pg (26.0-34.0); MCHC 33.6 g/dL (31.0-37.0); MCV 87.8 fL (80.0-100.0); MEAN PLATELET VOLUME 8.4 fL (7.4-10.4); MONOCYTES 9.9 % (2-11); NEUTROPHILS 75.5 % (40-80); RBC 3.12 10x6/uL (4.00-5.40); RDW 14.2 % (11.5-14.5); WBC 9.2 10x3/uL (4.8-10.8)
[2018-03-31 05:06] LABS: PLATELET COUNT 239 10x3/uL (130-400)
[2018-03-31 05:09] LABS: CALC OSMOLALITY 265 mosm/kg (275-300); CALCIUM 7.3 mg/dL (8.5-10.1); CARBON DIOXIDE 25.5 mmol/L (21.0-32.0); CHLORIDE - SERUM 100 mmol/L (98-107); CREATININE - SERUM 0.6 mg/dL (0.6-1.3); GLUCOSE 112 mg/dL (74-106); POTASSIUM - SERUM 3.6 mmol/L (3.5-5.1); SODIUM 133 mmol/L (136-145); UREA NITROGEN 9 mg/dL (7-18); eGFR NON AFRICAN AMERICAN > 90 mL/min (90-120)
--- NOTE | 2018-03-31 07:50 | NUR ---
PATIENT WITH DX OF LEFT LEG DVT RESTING IN BED WITH LEFT LEG ELEVATED WITH PILLOW, DENIES PAIN AT THIS TIME, RESPIRATIONS REGULAR AND NONLABORED. AT SIDE, CALL LIGHT IN REACH
[2018-03-31 09:18] VITALS: BP 136/77
[2018-03-31 11:52] VITALS: BP 132/78
--- NOTE | 2018-03-31 12:10 | NUR ---
NUTRITION F/U PT TOLERATING REG DIET, 50% INTAKE BREAKFAST THIS AM. WILL CONTINUE TO PROVIDE DIET, HONOR FOOD PREFERENCES. RD FOLLOWING
--- NOTE | 2018-03-31 14:30 | MORECARE ---
CASE MANAGEMENT DISCHARGE SUMMARY PATIENT: VALDO AGUILERA UNIT: [id number] ADM DATE: 03/26/18 AGE: 72 : 43 SEX: F ROOM/BED: D.2207 AUTHOR: ANGELO WHEELER PHYSICIAN: REFERRING PHYSICIAN: ADRY GROSS MD DATE OF SERVICE: 03/31/18 Discharge Plan Patient Name: VALDO AGUILERA Facility: [facility]:[place] : 1945 Planned Disposition: Home Anticipated Discharge Date: Discharge Date: Expected LOS: Initial Reviewer: [id number] Initial Review Date: 03/26/2018 Generated: 03/31/18 3:30 pm DCPIA - Discharge Planning Initial Assessment Updated by [email or web address]: Bernice Ro on 03/31/18 2:30 pm * Is the patient Alert and Oriented? Yes * How many steps to enter\exit or inside your home? * PCP RAJ * Pharmacy [facility] [address] * Preadmission Environment Home with Family * ADLs Independent * Equipment Rolling Walker * List name and contact numbers for known caregivers / representatives who currently or will assist patient after discharge: LOREE (SON) [phone] PAIGE (SPOUSE) * Verbal permission to speak to the caregivers and representatives has been obtained from the patient. Yes * Community resources currently utilized None * Additional services required to return to the preadmission environment? No * Can the patient safely return to the preadmission environment? Yes * Has this patient been hospitalized within the prior 30 days at any hospital? No Patient Name: VALDO AGUILERA Page 78664 at 1430 All edits/amendments must be made on the electronic document DICTATION DATE: 03/31/18 1430 RESEARCH AGRICULTURAL ENGINEER: CULLEN 03/31/18 1430 RPT#: [id number] DC DATE: STATUS: ADM IN [facility] [address] [place] [address] END OF REPORT
--- NOTE | 2018-03-31 14:37 | MORECARE ---
CASE MANAGEMENT DISCHARGE SUMMARY PATIENT: VALDO AGUILERA UNIT: [id number] ADM DATE: 03/26/18 AGE: 72 : 43 SEX: F ROOM/BED: D.7990 AUTHOR: LIAM,DOC PHYSICIAN: REFERRING PHYSICIAN: ADRY GROSS MD DATE OF SERVICE: 03/31/18 Discharge Plan Patient Name: VALDO AGUILERA Facility: [facility]:[place] : 1945 Planned Disposition: Home Anticipated Discharge Date: Discharge Date: Expected LOS: Initial Reviewer: [email or web address] Initial Review Date: 03/26/2018 Generated: 03/31/18 3:37 pm Comments DCP- Discharge Planning Updated by [id number]: Bernice Ro on 03/31/18 1:[address] Patient Name: VALDO AGUILERA Admission Status: ER Accout number: [id number] Admission Date: 03-26-2018 : 1945 Admission Diagnosis:ACUTE EMBOLISM AND THOMBOS UNSP DEEP VN UNSP LOWER EXTR Attending: ADRY GROSS Current LOS: 5 Anticipated DC Date: Planned Disposition: Home Primary Insurance: MEDICARE A & B Discharge Planning Comments: CM met with patient to assess discharge planning needs. Patient lives independently at home with her and plans to return there at discharge. She has 4 steps to her home. She has a walker at home, but does not use/need it. She plans to return home at DC. Unsure of any needs at DC. CM will continue to follow and assist with DC planning needs. Java J2Ee Architect: Bernice Ro DCPIA - Discharge Planning Initial Assessment Updated by [email or web address]: Bernice Ro on 03/31/18 2:30 pm * Is the patient Alert and Oriented? Yes * How many steps to enter\exit or inside your home? * PCP ANTHONY * Pharmacy [facility] [address] * Preadmission Environment Home with Family * ADLs Independent * Equipment Rolling Walker * List name and contact numbers for known caregivers / representatives who currently or will assist patient after discharge: LOREE (SON) [phone] PAIGE (SPOUSE) * Verbal permission to speak to the caregivers and representatives has been obtained from the patient. Yes * Community resources currently utilized None * Additional services required to return to the preadmission environment? No * Can the patient safely return to the preadmission environment? Yes * Has this patient been hospitalized within the prior 30 days at any hospital? No Last DP export: 03/31/18 1:30 p Patient Name: VALDO AGUILERA Page [id number] at 1437 All edits/amendments must be made on the electronic document DICTATION DATE: 03/31/181436 RUG SCRATCHER: CULLEN 03/31/181436 RPT#: [id number] DC DATE: STATUS: ADM IN [facility] [address] [place] [address] END OF REPORT
[2018-03-31 16:29] VITALS: BP 132/71
[2018-03-31 20:00] VITALS: BP 129/77
--- NOTE | 2018-03-31 20:35 | NUR ---
PT RESTING IN BED. ALERT AND ORIENTED. PT STATED NO PROBLEMS AT THIS TIME. NO SIGNS OF DISTRESS. BREATHING EVEN AND UNLABORED. AT BEDSIDE. SKIN CLEAN DRY AND INTACT. BOWERL SOUNDS ACTIVE. LT LOWER LEG SWELLING PRESENT. FELDMAN IN PLACE. NO REDNESS OR SIGNS OF INFECTION. IV SITE RT WRIST DRESSING CLEAN DRY AND ITNACT. NO SIGNS OF INFECTION. WILL CONTINUE PLAN OF CARE. CALL LIGHT IN REACH.
--- NOTE | 2018-04-01 00:57 | NUR ---
CALLED [facility] DIRECTOR FOR PT [facility]. WE DO NOT HAVE THEM ON THE FLOOR. NEWSCAST DIRECTOR STATES THEY CANT GET TO THEM AT THIS TIME. NO VERA TO GET IN TO RECEIVE THE [facility]. WILL CALL FIRST THING IN THE MORNING TO GET [facility] FOR PT.
--- NOTE | 2018-04-01 01:47 | NUR ---
PATIENT ASLEEP WITH NO S/S OF DISTRESS RESPRATION EVEN AND UNLABORED, FAMILY AT BEDSIDE CALL LIGHT IN REACH.
[2018-04-01 04:00] VITALS: BP 152/79
[2018-04-01 05:53] LABS: BASOPHILS 0.3 % (0-2); EOSINOPHILS 0.7 % (0-7); HEMATOCRIT 27.6 % (36.0-48.0); HEMOGLOBIN 9.6 g/dL (12-16); IMMATURE GRANULOCYTES 4.6 % (0-5); LYMPHOCYTES 9.4 % (15-50); MCH 30.1 pg (26.0-34.0); MCHC 34.8 g/dL (31.0-37.0); MCV 86.5 fL (80.0-100.0); MEAN PLATELET VOLUME 8.5 fL (7.4-10.4); MONOCYTES 9.6 % (2-11); NEUTROPHILS 75.4 % (40-80); RBC 3.19 10x6/uL (4.00-5.40); RDW 14.2 % (11.5-14.5); WBC 11.4 10x3/uL (4.8-10.8)
[2018-04-01 05:55] LABS: PLATELET COUNT 316 10x3/uL (130-400)
[2018-04-01 06:04] LABS: ALBUMIN 2.1 g/dL (3.4-5.0); ALKALINE PHOSPHATASE 78 U/L (46-116); ALT (SGPT) 36 U/L (10-68); BILIRUBIN - TOTAL 0.72 mg/dL (0.2-1.3); CALC OSMOLALITY 267 mosm/kg (275-300); CARBON DIOXIDE 26.2 mmol/L (21.0-32.0); CHLORIDE - SERUM 99 mmol/L (98-107); CREATININE - SERUM 0.7 mg/dL (0.6-1.3); GLUCOSE 110 mg/dL (74-106); POTASSIUM - SERUM 3.3 mmol/L (3.5-5.1); PROTEIN - SERUM 5.9 g/dL (6.4-8.2); SODIUM 134 mmol/L (136-145); UREA NITROGEN 9 mg/dL (7-18); eGFR NON AFRICAN AMERICAN 87 mL/min (90-120)
--- NOTE | 2018-04-01 07:50 | NUR ---
PATIENT RESTING IN BED WITH LEFT LEG ELEVATED WITH PILLOW, LESS EDEMA NOTED FROM YESTERDAY. PATIENT DENIES PAIN AT THIS TIME. FELDMAN CATH PATENT TO BEDSIDE DRAINAGE, CLEAR YELLOW URINE. CL IN REACH
[2018-04-01 08:45] VITALS: BP 133/81
[2018-04-01 16:16] VITALS: BP 143/75
[2018-04-01 20:00] VITALS: BP 143/75
[2018-04-01 20:07] LABS: FACTOR II DNA ANALYSIS Negative (())
--- NOTE | 2018-04-01 21:15 | NUR ---
SUPINE IN ROOM, AT BEDSIDE. A&O X 4. EDEMA TO LLE. PT STATES SHE HAS BEEN ABLE TO AMBULATE TO AND FROM RESTROOM. LUNG SOUNDS CLEAR BILATERALLY. WILL CONTINUE TO MONITOR.
--- NOTE | 2018-04-02 03:25 | NUR ---
CONCUR W/ MILL HAND PLATE MILL ASSESSMENT
[2018-04-02 04:00] VITALS: BP 136/70
[2018-04-02 05:42] LABS: BASOPHILS 0.2 % (0-2); EOSINOPHILS 0.8 % (0-7); HEMATOCRIT 27.5 % (36.0-48.0); HEMOGLOBIN 9.4 g/dL (12-16); IMMATURE GRANULOCYTES 6.2 % (0-5); LYMPHOCYTES 10.1 % (15-50); MCH 29.6 pg (26.0-34.0); MCHC 34.2 g/dL (31.0-37.0); MCV 86.5 fL (80.0-100.0); MEAN PLATELET VOLUME 8.4 fL (7.4-10.4); MONOCYTES 10.9 % (2-11); NEUTROPHILS 71.8 % (40-80); PLATELET COUNT 293 10x3/uL (130-400); RBC 3.18 10x6/uL (4.00-5.40); RDW 14.4 % (11.5-14.5); WBC 10.8 10x3/uL (4.8-10.8)
[2018-04-02 06:42] LABS: ALKALINE PHOSPHATASE 82 U/L (46-116); ALT (SGPT) 44 U/L (10-68); BILIRUBIN - TOTAL 0.57 mg/dL (0.2-1.3); CALC OSMOLALITY 266 mosm/kg (275-300); CALCIUM 7.8 mg/dL (8.5-10.1); CARBON DIOXIDE 25.6 mmol/L (21.0-32.0); CHLORIDE - SERUM 100 mmol/L (98-107); CREATININE - SERUM 0.6 mg/dL (0.6-1.3); GLUCOSE 107 mg/dL (74-106); POTASSIUM - SERUM 3.5 mmol/L (3.5-5.1); PROTEIN - SERUM 5.8 g/dL (6.4-8.2); SODIUM 134 mmol/L (136-145); UREA NITROGEN 9 mg/dL (7-18); eGFR NON AFRICAN AMERICAN > 90 mL/min (90-120)
--- NOTE | 2018-04-02 07:37 | MORECARE ---
CASE MANAGEMENT DISCHARGE SUMMARY PATIENT: VALDO AGUILERA UNIT: [id number] ADM DATE: 03/26/18 AGE: 72 : 43 SEX: F ROOM/BED: D.2205 AUTHOR: LIAM,DOC PHYSICIAN: REFERRING PHYSICIAN: ADRY GROSS MD DATE OF SERVICE: 04/02/18 Discharge Plan Patient Name: VALDO AGUILERA Facility: [facility]:[place] : 1945 Planned Disposition: Home Anticipated Discharge Date: Discharge Date: Expected LOS: Initial Reviewer: [email or web address] Initial Review Date: 03/26/2018 Generated: 04/02/18 8:37 am Comments DCP- Discharge Planning Updated by [email or web address]: Bernice Ro on 04/02/18 6:[address] IMM served and explained to patient and on 04/01/18 @ 1630 DCP- Discharge Planning Updated by [email or web address]: Bernice Ro on 03/31/18 1:[address] Patient Name: VALDO AGUILERA Admission Status: ER Accout number: [id number] Admission Date: 03-26-2018 : 1945 Admission Diagnosis:ACUTE EMBOLISM AND THOMBOS UNSP DEEP VN UNSP LOWER EXTR Attending: ADRY GROSS Current LOS: 5 Anticipated DC Date: Planned Disposition: Home Primary Insurance: MEDICARE A & B Discharge Planning Comments: CM met with patient to assess discharge planning needs. Patient lives independently at home with her and plans to return there at discharge. She has 4 steps to her home. She has a walker at home, but does not use/need it. She plans to return home at DC. Unsure of any needs at DC. CM will continue to follow and assist with DC planning needs. Oracle Database Manager: Bernice Ro DCPIA - Discharge Planning Initial Assessment Updated by [id number]: Bernice Ro on 03/31/18 2:30 pm * Is the patient Alert and Oriented? Yes * How many steps to enter\exit or inside your home? * PCP ANTHONY * Pharmacy [facility] [address] * Preadmission Environment Home with Family * ADLs Independent * Equipment Rolling Walker * List name and contact numbers for known caregivers / representatives who currently or will assist patient after discharge: LOREE (SON) [phone] PAIGE (SPOUSE) * Verbal permission to speak to the caregivers and representatives has been obtained from the patient. Yes * Community resources currently utilized None * Additional services required to return to the preadmission environment? No * Can the patient safely return to the preadmission environment? Yes * Has this patient been hospitalized within the prior 30 days at any hospital? No Coverage Notice Reviewer: [email or web address] Abbie Ro Notice Issued Date-Time: 04/02/2018 14:30 Notice Type: IM Discharge Notice Notice Delivered To: Patient Relationship to Patient: Business Partner Name: Delivery Method: HAND - Hand Delivered Shira Days: Prior Verbal Notification: Recipient Understood Notice: Yes Recipient Signature: Yes Med Rec Note Co-signed by Attending: Coverage Notice Comment: Last DP export: 03/31/18 1:37 p Patient Name: VALDO AGUILERA Page 19882 at 0737 All edits/amendments must be made on the electronic document DICTATION DATE: 04/02/18736 ORACLE FUSION CONSULTANT: CULLEN 04/02/1837 RPT#: [id number] DC DATE: STATUS: ADM IN [facility] [address] [place] [address] END OF REPORT
[2018-04-02 10:04] VITALS: BP 140/71
[2018-04-02] MEDS ORDERED: FLORAJEN3 CAPS460 MG PO (11:56)
[2018-04-02] MEDS ORDERED: ELIQUIS5 MG PO (11:56)
[2018-04-02] MEDS ORDERED: LEVAQUIN750 MG PO (11:57)
[2018-04-02] MEDS ORDERED: RESTORIL15 MG PO (12:01)
--- NOTE | 2018-04-02 14:25 | MORECARE ---
CASE MANAGEMENT DISCHARGE SUMMARY PATIENT: VALDO AGUILERA UNIT: [id number] ADM DATE: 03/26/18 AGE: 72 : 43 SEX: F ROOM/BED: D.9122 AUTHOR: LIAM,DOC PHYSICIAN: REFERRING PHYSICIAN: ADRY GROSS MD DATE OF SERVICE: 04/02/18 Discharge Plan Patient Name: VALDO AGUILERA Facility: [facility]:[place] : 1945 Planned Disposition: Home Anticipated Discharge Date: Discharge Date: Expected LOS: Initial Reviewer: [email or web address] Initial Review Date: 03/26/2018 Generated: 04/02/18 3:25 pm Comments DCP- Discharge Planning Updated by [email or web address]: Bernice Ro on 04/02/18 1:[address] PATIENT IS DISCHARGING HOME TODAY, THEY WILL MAKE THEIR OWN PHYSICAL THERAPY APPOINTMENT WITH [facility] BENJ[facility]IN. WRITTEN ORDER AND FACESHEET GIVEN TO THEM TO SET UP. FACESHEET ALSO GIVEN. PATIENT DENIES ANY OTHER NEEDS. CM TO FOLLOW AND ASSIST WITH DC PLANNING DCP- Discharge Planning Updated by [email or web address]: Bernice Ro on 04/02/18 6:[address] IMM served and explained to patient and on 04/01/18 @ 1630 DCP- Discharge Planning Updated by [email or web address]: Bernice Ro on 03/31/18 1:[address] Patient Name: VALDO AGUILERA Admission Status: ER Accout number: [id number] Admission Date: 03-26-2018 : 1945 Admission Diagnosis:ACUTE EMBOLISM AND THOMBOS UNSP DEEP VN UNSP LOWER EXTR Attending: ADRY GROSS Current LOS: 5 Anticipated DC Date: Planned Disposition: Home Primary Insurance: MEDICARE A & B Discharge Planning Comments: CM met with patient to assess discharge planning needs. Patient lives independently at home with her and plans to return there at discharge. She has 4 steps to her home. She has a walker at home, but does not use/need it. She plans to return home at DC. Unsure of any needs at DC. CM will continue to follow and assist with DC planning needs. News Videotape Editor: Bernice Ro DCPIA - Discharge Planning Initial Assessment Updated by [email or web address]: Bernice Ro on 03/31/18 2:30 pm * Is the patient Alert and Oriented? Yes * How many steps to enter\exit or inside your home? * PCP ANTHONY * Pharmacy [facility] [address] * Preadmission Environment Home with Family * ADLs Independent * Equipment Rolling Walker * List name and contact numbers for known caregivers / representatives who currently or will assist patient after discharge: LOREE (SON) [phone] PAIGE (SPOUSE) * Verbal permission to speak to the caregivers and representatives has been obtained from the patient. Yes * Community resources currently utilized None * Additional services required to return to the preadmission environment? No * Can the patient safely return to the preadmission environment? Yes * Has this patient been hospitalized within the prior 30 days at any hospital? No Coverage Notice Reviewer: [email or web address] - Bernice Ro Notice Issued Date-Time: 04/02/2018 14:30 Notice Type: IM Discharge Notice Notice Delivered To: Patient Relationship to Patient: Crew Dispatcher Name: Delivery Method: HAND - Hand Delivered Shira Days: Prior Verbal Notification: Recipient Understood Notice: Yes Recipient Signature: Yes Med Rec Note Co-signed by Attending: Coverage Notice Comment: Last DP export: 04/02/18 6:37 a Patient Name: VALDO AGUILERA Page 70593 at 1425 All edits/amendments must be made on the electronic document DICTATION DATE: 04/02/181423 SEMICONDUCTOR WAFERS ETCH OPERATOR: CULLEN 04/02/181423 RPT#: [id number] DC DATE: STATUS: ADM IN [facility] [address] [place] [address] END OF REPORT
--- NOTE | 2018-04-04 11:47 | MORECARE ---
CASE MANAGEMENT DISCHARGE SUMMARY PATIENT: VALDO AGUILERA UNIT: [id number] ADM DATE: 03/26/18 AGE: 72 : 43 SEX: F ROOM/BED: D.5877 AUTHOR: ANGELO WHEELER PHYSICIAN: REFERRING PHYSICIAN: ADRY GROSS MD DATE OF SERVICE: 04/04/18 Discharge Plan Patient Name: VALDO AGUILERA Facility: [facility]:[place] : 1945 Planned Disposition: Home Anticipated Discharge Date: Discharge Date: 04/02/2018 Expected LOS: 0 Initial Reviewer: [email or web address] Initial Review Date: 03/26/2018 Generated: 04/04/18 12:46 pm Comments DCP- Discharge Planning Updated by [email or web address]: Bernice Ro on 04/02/18 1:[address] PATIENT IS DISCHARGING HOME TODAY, THEY WILL MAKE THEIR OWN PHYSICAL THERAPY APPOINTMENT WITH [facility] BENJAMIN. WRITTEN ORDER AND FACESHEET GIVEN TO THEM TO SET UP. FACESHEET ALSO GIVEN. PATIENT DENIES ANY OTHER NEEDS. CM TO FOLLOW AND ASSIST WITH DC PLANNING DCP- Discharge Planning Updated by [email or web address]: Bernice Ro on 04/02/18 6:[address] IMM served and explained to patient and on 04/01/18 @ 1630 DCP- Discharge Planning Updated by [email or web address]: Bernice Ro on 03/31/18 1:[address] Patient Name: VALDO AGUILERA Admission Status: ER Accout number: [id number] Admission Date: 03-26-2018 : 1945 Admission Diagnosis:ACUTE EMBOLISM AND THOMBOS UNSP DEEP VN UNSP LOWER EXTR Attending: ADRY GROSS Current LOS: 5 Anticipated DC Date: Planned Disposition: Home Primary Insurance: MEDICARE A & B Discharge Planning Comments: CM met with patient to assess discharge planning needs. Patient lives independently at home with her and plans to return there at discharge. She has 4 steps to her home. She has a walker at home, but does not use/need it. She plans to return home at DC. Unsure of any needs at DC. CM will continue to follow and assist with DC planning needs. Uniform Patrol Police Officer: Bernice Ro DCPIA - Discharge Planning Initial Assessment Updated by [email or web address]: Bernice Ro on 03/31/18 2:30 pm * Is the patient Alert and Oriented? Yes * How many steps to enter\exit or inside your home? * PCP RAJ * Pharmacy [facility] [address] * Preadmission Environment Home with Family * ADLs Independent * Equipment Rolling Walker * List name and contact numbers for known caregivers / representatives who currently or will assist patient after discharge: LOREE (SON) [phone] PAIGE (SPOUSE) * Verbal permission to speak to the caregivers and representatives has been obtained from the patient. Yes * Community resources currently utilized None * Additional services required to return to the preadmission environment? No * Can the patient safely return to the preadmission environment? Yes * Has this patient been hospitalized within the prior 30 days at any hospital? No Coverage Notice Reviewer: [id number] - Bernice Ro Notice Issued Date-Time: 04/02/2018 14:30 Notice Type: IM Discharge Notice Notice Delivered To: Patient Relationship to Patient: Automotive General Sales Manager Name: Delivery Method: HAND - Hand Delivered Shira Days: Prior Verbal Notification: Recipient Understood Notice: Yes Recipient Signature: Yes Med Rec Note Co-signed by Attending: Coverage Notice Comment: Last DP export: 04/02/18 1:25 p Patient Name: VALDO AGUILERA Page [phone] at 1147 All edits/amendments must be made on the electronic document DICTATION DATE: 04/04/18 1146 MIXING TUMBLER OPERATOR: CULLEN 04/04/18 1146 RPT#: [id number] DC DATE:04/02/18 STATUS: DIS IN [facility] [address] [place] [address] END OF REPORT
== END 2018-04-02 15:48 | disposition home health service (06) | DRG 252 ==
LOC: D.ER 15:58 → D.EDHOLD 17:59 → D.MS 17:59
PROVIDERS: Emergency Medicine; Family Medicine; General Practice; Internal Medicine Hematology & Oncology; ADMIT Internal Medicine Nephrology
PROC: 06H03DZ Insertion of Intraluminal Device into Inferior Vena Cava, Percutaneous Approach (ICD-10-PCS; principal; 2018-03-27 13:30)
DX: I82.422 Acute embolism and thrombosis of left iliac vein (principal); J18.9 Pneumonia, unspecified organism; N39.0 Urinary tract infection, site not specified; D62 Acute posthemorrhagic anemia; R58 Hemorrhage, not elsewhere classified; I10 Essential (primary) hypertension

== ENCOUNTER → 2018-09-02 08:21 | Outpatient (CLI) | payer MEDICARE, BC ==
[2018-03-27 17:48] VITALS: BMI 24.8
[~2018-09-02 08:21] MED LIST changes: +ELIQUIS5 MG PO; +FLORAJEN3 CAPS460 MG PO; +LEVAQUIN750 MG PO; +RESTORIL15 MG PO
== END | disposition home or self-care (01) ==
LOC: D.US 08:21
PROVIDERS: ATTEND Internal Medicine Hematology & Oncology
DX: I82.402 Acute embolism and thrombosis of unspecified deep veins of left lower extremity (principal)

== ENCOUNTER 2018-10-09 06:39 | Outpatient (CLI) | payer MEDICARE, BC ==
[~2018-10-09] VITALS: Ht 160 cm; Wt 64.1 kg
--- NOTE | ~2018-10-09 | HEMODYNAMI ---
PATIENT:VALDO AGUILERA MEDICAL RECORD: [id number] : 41 LOCATION:[facility] ADMISSION DATE: 10/09/18 Generatedon:10/09/201810:08 Patient name: VALDO AGUILERA Patient #: [id number] SSN: D OB: 1945 Date of study: 10/09/2018 Page: Of Hemodynamic Procedure Report Patient Data Patient Demographics Procedure consent was obtained First Name: VALDO Gender: Female Last Name: WILLY : 1945 [facility] Initial: C Age: 72 year(s) Patient #: [id number] Race: Unknown Additional ID: [id number] Contact details Address: [address] [place] [address] State: [place] City: [place] Zip code: [address] Past Medical History Allergies Allergen Reaction Date Comments Reported Other allergy 10/09/2018 novocain, antihistamines Admission Admission Data Admission Date: 10/09/2018 Admission Time: 6:39 Procedure Procedure Types Cath Procedure Peripheral Cath Diagnostic Procedure Miscellaneous Procedure Description Procedure Date Procedure Date: 10/09/2018 Procedure Start Time: 9:34 Procedure Staff Name Function John Edmonds RT Monitor Alfredito Cruz MD Performing Physician Krystal Hwang RN Nurse AGNES MARIN RT Scrub Procedure Data Cath Procedure Fluoroscopy Diagnostic fluoroscopy Total fluoroscopy Time: 3.7 time: 3.7 min min Diagnostic fluoroscopy Total fluoroscopy dose: 166 dose: 166 mGy mGy Contrast Material Contrast Material Type Amount (ml) Isovue 300 85 Entry Location Entry Primary Successful Side Size Upsize Upsize Entry Closure Succes sful Closure Location (Fr) 1 (Fr) 2 (Fr) Remarks Device Remarks Jugular Right 6 Fr vein Short Diagnostic catheters Device Type Used For End Catheter Placement Merit ULTRA BOLUS FLUSH 5Fr 65CM catheter ([id number]) Procedure Medications Medication Administration Route Dosage Heparin Flush Bag added to field 3 bags (1000units/500ml NS) Lidocaine 1% added to field 20 Versed I.V. 1 mg Fentanyl I.V. 50 mcg Versed I.V. 1 mg Fentanyl I.V. 50 mcg Hemodynamics Rest Heart Rate: 63 (bpm) Snapshots Pre Cath Intra NCS Post Cath Vital Signs Time Heart Resp SPO2 etCO2 NIBP (mmHg) Rhythm Pain Sedation Rate (ipm) (%) (mmHg) Status Level (bpm) 9:12:25 61 1 99 36.2 153/80(125) NSR 0 (11) 10(A) , No pain 9:16:40 59 5 100 35.4 143/74(123) NSR 0 (11) 10(A) , No pain 9:20:52 62 12 100 33.9 141/75(124) NSR 0 (11) 10(A) , No pain 9:25:04 62 13 100 32.4 135/76(122) NSR 0 (11) 9(A) , No pain 9:29:16 65 9 100 35.4 143/73(115) NSR 0 (11) 9(A) , No pain 9:33:32 67 6 100 36.1 128/70(106) NSR 0 (11) 8(A) , No pain 9:36:43 69 13 99 40.6 129/75(109) NSR 0 (11) 8(A) , No pain 9:40:52 69 7 99 41.4 115/70(102) NSR 0 (11) 8(A) , No pain 9:45:51 73 17 99 38.4 Measuring NSR 0 (11) 8(A) , No pain 9:45:55 70 13 99 38.4 129/71(106) NSR 0 (11) 8(A) , No pain 9:50:05 73 17 99 45.2 133/66(112) NSR 0 (11) 8(A) , No pain 9:54:15 72 11 98 39.9 127/72(102) NSR 0 (11) 8(A) , No pain 9:58:25 74 10 98 24.8 134/69(96) NSR 0 (11) 8(A) , No pain 10:02:39 71 9 98 27.1 134/66(98) NSR 0 (11) 8(A) , No pain 10:06:49 71 21 99 39.2 124/72(105) NSR 0 (11) 8(A) , No pain Medications Time Medication Route Dose Verified Delivered Reason Notes Effec tiveness by by 9:12:47 Heparin Flush added 3 Alfredito Glaser used for Bag to bags Nancy Cruz MD procedure (1000units/500ml field WILLIS NS) 9:12:58 Lidocaine 1% added 20ml Alfredito Glaser for local to vial Nancy Cruz MD anesthetic field WILLIS 9:31:18 Versed I.V. 1 mg Alfredito Rice for Jaiden Cruz RN sedation 9:31:29 Fentanyl I.V. 50 Alfredito Krystal for mcg Jaiden Cruz RN sedation 9:35:07 Versed I.V. 1 mg Alfredito Rice for Jaiden Cruz RN sedation 9:35:14 Fentanyl I.V. 50 Alfredito Krystal for mcg Jaiden Cruz RN sedation Procedure Log Time Note 8:58:26 John Edmonds RT (R) (CV) sent for patient. Start room use. 8:58:39 Time tracking: Regular hours (M-F 7:00 - 5:00) 8:58:45 Plan of Care:Hemodynamics will remain stable., Cardiac rhythm will remain stable., Comfort level will be maintained., Respiratory function will remain adequate., Patient/ family verbilizes understanding of procedure., Procedure tolerated without complication., Recovers from procedure without complications.. 8:59:04 Patient received from Outpatients to IR Alert and oriented. Tansferred to table in Supine position. 8:59:06 Signed procedure consent form obtained from patient. 8:59:11 Warm blankets applied, and christie hugger turned on for patient comfort. 8:59:12 Correct patient and procedure confirmed by team. 8:59:14 ECG and BP/O2 sat monitors applied to patient. 8:59:49 - 9:00:16 H&P Date Dictated: 10/09/2018 H&P Addendum completed by physician on day of procedure. (MUST COMPLETE FOR ALL OUTPATIENTS). 9:00:20 Pre-procedure instructions explained to patient. 9:00:21 Pre-op teaching completed and patient verbalized understanding. 9:00:39 Family in waiting room. 9:00:42 Patient NPO since Midnight. 9:01:21 Patient allergic to Other allergy novocain, antihistamines 9:01:32 Is the patient allergic to Iodine/contrast media? No. 9:02:08 Is patient on blood thinner?Yes 9:02:32 Patient diabetic? No. 9:02:46 - 9:02:48 ----Pre-sedation anethsthesia assessment.---- 9:02:53 Previous problem with sedation/anesthesia? No ? 9:02:54 Snore? Yes 9:02:56 Sleep apnea? No 9:02:58 Deviated septum? No 9:02:59 Opens mouth fully? Yes 9:03:00 Sticks out tongue? Yes 9:03:03 Airway obstruction? No ? 9:03:20 Dentures? No 9:03:26 - 9:03:33 Patient pain scale 0/10 ?. 9:04:00 IV patent on arrival in left wrist with 0.45%NaCl at KVO. 9:04:22 Right neck area was prepped with chlora-prep and draped in sterile fashion 9:04:24 Alarms reviewed by RMega N. 9:04:25 Sharps counted by scrub and verified by RMegaN. 9:10:02 Procedure type changed to Cath procedure, Peripheral Cath Diagnostic Procedure, Miscellaneous 9:11:14 Vital chart was started 9:11:16 Baseline sample Acquired. 9:11:19 Full Disclosure recording started 9:12:47 Heparin Flush Bag (1000units/500ml NS) 3 bags added to field was administered by Alfredito Cruz MD; used for procedure; 9::58 Lidocaine 1% 20ml vial added to field was administered by Alfredito Cruz MD; for local anesthetic; 9:20:35 Use device set IR Diagnostic 9:20:37 ACIST Syringe (39021) opened to sterile field. 9:20:37 ACIST Manifold (06611) opened to sterile field. 9:20:38 ACIST Hand Control (22651) opened to sterile field. 9:20:38 Bag Decanter (2001S) opened to sterile field. 9:20:39 Sterile Angiographic Pack opened to sterile field. 9:20:39 Tegaderm 4 x 4 (1626W) opened to sterile field. 9:21:00 SNARE Filter Retreival Kit (SRK20) opened to sterile field. 9:21:29 - 9:28:58 Physician arrived 9:29:03 --------ALL STOP TIME OUT------ 9:29:31 Final Timeout: patient, procedure, and site verified with staff and physician. All members of the team are in agreement. 9:29:37 Right neck site verified by team. 9:29:41 Fire Safety Assessment: A--An alcohol-based skin anteseptic being used preoperatively., C--Open oxygen or nitrous oxide is being used. 9:29:46 2) 60-89 Mildly reduced kidney function, and other findings (as for stage 1) point to kidney disease. 9:31:18 Versed 1 mg I.V. was administered by Krystal Hwang RN; for sedation; 9:31:29 Fentanyl 50 mcg I.V. was administered by Krystal Hwang RN; for sedation ; 9:32:41 Procedure started. 9:34:29 Local anesthetic to right neck with Lidocaine 1% by Alfredito Cruz MD.INITIAL ACCESS ONLY 9:34:50 DOC .035 wire ([id number]) opened to sterile field. 9:35:07 Versed 1 mg I.V. was administered by Krystal Hwang RN; for sedation; 9:35:14 Fentanyl 50 mcg I.V. was administered by Krystal Hwang RN; for sedation ; 9:37:32 Access obtained with 4Fr micropunture. 9:37:41 A 6 Fr Short sheath was inserted into the Right Jugular vein 9:39:49 A Preo ULTRA BOLUS FLUSH 5Fr 65CM catheter ([id number]) was advanced over the wire and used for . 9:45:03 AMPLATZ Super stiff 180cm wire ([id number]) opened to sterile field. 9:57:07 Procedure ended.(Physican Out) 9:58:58 Contrast amount:Isovue 300 85ml. 9:59:16 Fluoroscopy time 03.70 minutes. 9:59:23 Fluoroscopy dose: 166 mGy 9:59:23 Flurop Dose total: 166 9:59:41 Insertion/operative site no bleeding no hematoma. 10:00:20 Post-op/insertion site Right Jugular vein dressed using a 4 x 4 and Tegaderm. 10:02:55 Post procedure instruction explained to patient.Patient verbalizes understanding. 10:02:59 Procedure and supply charges have been captured, reviewed, submitted an d are correct. 10:04:34 Sharps counted by scrub and verified by R.N. 10:04:45 Post right IJ vein:stable 10:07:32 Vital chart was stopped 10:07:48 See physician's report for complete and final results. 10:07:56 Patient transfered to Outpatients with Stretcher. 10:08:01 End room use (Document Last) Device Usage Item Name Manufacture Quantity Catalog Number Hospital Part Current [facility] Lot# / Charge Number Stock Stock Serial# Code ACIST Syringe Acist 1 82971 134933 724994 100740 20 (29397) [employer] Inc ACIST Manifold Acist 1 68048 917905 067714 248898 5 (52086) [employer] Inc ACIST Hand Acist 1 13839 276551 763646 067739 5 Control Medical (65151) Systems Inc Bag Decanter Microtek 1 032495 33064 833909 5 (2002S) Medical Inc. Sterile Cardinal 1 [id number] 188925 448799 5 Angiographic Health Pack Tegaderm 4 x 4 3M 1 1626W 557350 813101 524108 5 (1626W) SNARE Filter Bard 1 SRK20 578110 989958 5 Retreival Kit (SRK20) DOC .035 wire Cook Medical 1 A25152 481378 123298 5 ([id number]) Merit ULTRA Merit 1 [id number] 562898 747560 5 BOLUS FLUSH Medical 5Fr 65CM catheter ([id number]) AMPLATZ Super [place] 1 [id number] 565061 702683 965255 5 stiff 180cm Scientific wire ([id number]) Signature Audit [place] Stage Time Signature Unsigned Intra-Procedure 10/09/2018 AGNES MARIN RT 10:08:25 AM (R) Signatures Monitor : John Signature : Kendal RT Date : Time : [facility] [address] [facility] [place] [address]
[2018-10-09 06:51] LABS: BASOPHILS 0.2 % (0-2); EOSINOPHILS 1.8 % (0-7); HEMATOCRIT 38.7 % (36.0-48.0); HEMOGLOBIN 13.2 g/dL (12-16); IMMATURE GRANULOCYTES 0.2 % (0-5); MCH 30.2 pg (26.0-34.0); MCHC 34.1 g/dL (31.0-37.0); MCV 88.6 fL (80.0-100.0); MEAN PLATELET VOLUME 8.6 fL (7.4-10.4); NEUTROPHILS 61.8 % (40-80); RBC 4.37 10x6/uL (4.00-5.40); RDW 13.9 % (11.5-14.5); WBC 6.2 10x3/uL (4.8-10.8)
[2018-10-09 06:52] LABS: PLATELET COUNT 210 10x3/uL (130-400)
[2018-10-09 07:16] LABS: ANION GAP 11.5 mmol/L (8-16); CARBON DIOXIDE 29.3 mmol/L (21.0-32.0); CREATININE - SERUM 0.9 mg/dL (0.6-1.3); POTASSIUM - SERUM 3.8 mmol/L (3.5-5.1)
[2018-10-09 07:17] LABS: APTT 28.8 SECONDS (22.8-39.4); INR 0.94 (0.85-1.17); PROTIME 12.1 SECONDS (11.6-15.0)
[2018-10-09 07:39] VITALS: Ht 160 cm; Wt 64.1 kg
--- NOTE | 2018-10-09 11:52 | NUR ---
SPOKE WITH DR. LOCKHART VIA PHONE RE: BP TRENDING DOWNWARD. PT WITHJOUT C/O AND EATING AND DRINKING. WILL MONITOR FOR ONE MORE HOUR.
[2018-10-09 12:27] LABS: HEMATOCRIT 33.3 % (36.0-48.0); HEMOGLOBIN 11.4 g/dL (12-16)
--- NOTE | 2018-10-09 13:11 | NUR ---
1310 SPOKE [address] CAROLANN VIA PHONE. CT SCAN ORDERED. PT VITALS HAVE STABILIZED
--- NOTE | 2018-10-09 13:54 | NUR ---
1345 CT CLEARED. PREPARING TO DISCHHARGE PATIENT
== END 2018-10-09 13:40 | disposition home or self-care (01) ==
LOC: D.SP 06:39 → D.RAD 09:00 → D.SP 13:40
PROVIDERS: ATTEND General Practice
DX: Z86.718 Personal history of other venous thrombosis and embolism (principal); Z01.812 Encounter for preprocedural laboratory examination

== ENCOUNTER → 2018-10-15 09:50 | Outpatient (CLI) | payer MEDICARE, BC ==
[2018-10-09 07:39] VITALS: BMI 25.0
== END | disposition home or self-care (01) ==
LOC: D.CT 09:50
PROVIDERS: ATTEND General Practice
DX: R91.8 Other nonspecific abnormal finding of lung field (principal)

== ENCOUNTER → 2019-11-11 08:05 | Outpatient (CLI) | payer MEDICARE, BC ==
[2018-10-09 07:39] VITALS: BMI 25.0
== END | disposition home or self-care (01) ==
LOC: D.CT 08:05
PROVIDERS: ATTEND General Practice
DX: R91.1 Solitary pulmonary nodule (principal)